=== PATIENT | male | born 1985 | race American Indian/Alaskan Native ===

== ENCOUNTER 2017-01-28 15:42 | Emergency (ER) | payer MEDICAID ==
[2017-01-28 16:15] VITALS: BP 129/62; PULSE 92; RESP 16; TEMP 97.9; O2SAT 99
--- NOTE | 2017-01-28 17:24 | ED PDOC ---
HPI: CCC, URI, Sore Throat Time Seen by Provider: 01/28/17 16:06 Chief Complaint (Nursing): Cough, Cold, Congestion Chief Complaint (Provider): Cough, Cold, Congestion History Per: Patient History/Exam Limitations: no limitations Onset/Duration Of Symptoms: Days (x2 weeks) Current Symptoms Are (Timing): Still Present Additional Complaint(s): 31 year old male presents to the emergency department with a complaint of nasal congestion exasperated at night associated with sneezing ongoing for 2 weeks. Denied fever, chills, cough, facial pain, sore throat or sick contacts. Patient stated he has been taking Mucinex for pain relief. PMD: none provided Past Medical History Reviewed: Historical Data, Nursing Documentation, Vital Signs Vital Signs: Last Vital Signs Temp 97.9 F 01/28/17 16:14 Pulse 92 H 01/28/17 16:14 Resp 16 01/28/17 16:14 BP 129/62 01/28/17 16:14 Pulse Ox 99 01/28/17 17:30 - Medical History PMH: No Chronic Diseases - Surgical History Surgical History: No Surg Hx - Family History Family History: States: Unknown Family Hx - Social History Current smoker - smoking cessation education provided: No Ex-Smoker (has not smoked in the last 12 months): No Alcohol: None Drugs: Denies - Home Medications Home Medications: Ambulatory Orders Medication Instructions Recorded Naproxen 375 mg PO Q8 PRN #21 tab 07/08/14 Methylprednisolone [Medrol Dose 4 mg PO DAILY #21 mg 01/28/17 Pack (21 tabs)] - Allergies Allergies/Adverse Reactions: Allergies Allergy/AdvReac Type Severity Reaction Status Date / Time No Known Allergies Allergy Verified 01/28/17 16:14 Review of Systems ROS Statement: Except As Marked, All Systems Reviewed And Found Negative Constitutional: Negative for: Fever, Chills ENT: Positive for: Nose Congestion (with sneezing). Negative for: Ear Pain, Throat Pain, Other (facial pain) Respiratory: Negative for: Cough Physical Exam - Reviewed Nursing Documentation Reviewed: Yes Vital Signs Reviewed: Yes - Physical Exam Appears: Positive for: Well, Non-toxic, No Acute Distress Head Exam: Positive for: ATRAUMATIC, NORMAL INSPECTION, NORMOCEPHALIC ENT: Positive for: Normal ENT Inspection, Pharynx Is (within normal limits), TM Is/Are (clear bilaterally). Negative for: Sinus Pain/Drainage, Pharyngeal Erythema Cardiovascular/Chest: Positive for: Regular Rate, Rhythm, Chest Non Tender Respiratory: Positive for: Normal Breath Sounds. Negative for: Decreased Breath Sounds, Wheezing, Respiratory Distress Neurologic/Psych: Positive for: Alert (x3), Oriented - ECG O2 Sat by Pulse Oximetry: 99 (RA) Pulse Ox Interpretation: Normal Medical Decision Making Medical Decision Making: Initial Impression: Nasal congestion Time: 1658 --Upon provider evaluation, patient is medically stable and requires no further treatment in the ED at this time. Patient will be discharged home with Rx for Medrol Dose Pack. Counseling was provided and all questions were answered regarding diagnosis. There is agreement to discharge plan. Return if symptoms persist or worsen. Clinical Impression: Nasal congestion Scribe Attestation: Documented by Katja Reynaga, acting as a scribe for Mei Rothman Provider Scribe Attestation: All medical record entries made by the Scribe were at my direction and personally dictated by me. I have reviewed the chart and agree that the record accurately reflects my personal performance of the history, physical exam, medical decision making, and the department course for this patient. I have also personally directed, reviewed, and agree with the discharge instructions and disposition. Disposition - Clinical Impression Clinical Impression: Nasal congestion - Patient ED Disposition Is Patient to be Admitted: No Counseled Patient/Family Regarding: Diagnosis, Rx Given - Disposition Disposition: Routine/Home Disposition Time: 16:58 Condition: STABLE Prescriptions: Methylprednisolone [Medrol Dose Pack (21 tabs)] 4 mg PO DAILY #21 mg Instructions: Upper Respiratory Infection (ED) Forms: [employer] (Bengali)
== END 2017-01-28 16:59 | disposition home or self-care (01) ==
LOC: H.ER 15:42
DX: R09.81 Nasal congestion (principal)